=== PATIENT | female | born 1995 | race Two or more races ===

== ENCOUNTER 2018-04-28 19:32 | Emergency (ER) | payer MEDICAID, OTHER ==
[~2018-04-28] VITALS: Ht 157.5 cm; Wt 68.0 kg
[2018-04-28] MEDS ORDERED: SODIUM CHLORIDE 0.9% 1,000 ML IVB ONE (20:06)
[2018-04-28 20:25] LABS: Basophils # (auto) 0 uL; Basophils % (auto) 0.3 % (0.0-2.0); Eosinophils # (auto) 0.1 uL; Eosinophils % (auto) 1.3 % (0.0-7.0); Hemoglobin 13.4 g/dL (12.2-16.2); Lymphocytes # (auto) 2.3 uL; Lymphocytes % (auto) 20.6 % (10.0-50.0); Mean Corpuscular Hemoglobin 30.2 pg (28.0-32.0); Mean Corpuscular Hgb Conc. 33.6 g/dL (32.0-36.0); Mean Corpuscular Volume 90.2 fL (80.0-100.0); Monocytes # (auto) 0.6 uL; Monocytes % (auto) 5.7 % (0.0-12.0); Neutrophils # (auto) 7.9 uL; Neutrophils % (auto) 72.1 % (37.0-80.0); Platelet Count (auto) 204 10^3/uL (140-450); Red Blood Cells 4.44 10^6/uL (4.0-5.20); Red Cell Distribution Width 14.7 % (11.8-14.3); White Blood Cell 10.9 10^3/uL (4.4-10.8)
[2018-04-28 20:39] LABS: Albumin 3.4 g/dL (3.4-5.0); Calcium 9.3 mg/dL (8.5-10.1); INR 0.89 (0.9-1.15); Partial Thromboplastin Time 27.1 sec (23.78-33.04); Potassium 4.5 mmol/L (3.5-5.1); Prothrombin Time 9.6 sec (9.27-12.13)
[2018-04-28 20:41] LABS: BUN/Creatinine Ratio 12.5
[2018-04-28 20:44] LABS: Bilirubin, Total 0.2 mg/dL (0.2-1.0)
[2018-04-28 21:22] LABS: Urine Bacteria FEW /hpf (None Seen); Urine Blood Negative /uL (Negative); Urine Specific Gravity 1.004 (1.001-1.035); Urine WBC <1 /hpf (0 - 5)
[2018-04-28 21:49] VITALS: BP 103/56
== END 2018-04-28 23:38 | disposition home or self-care (01) ==
LOC: ER 19:32
DX: O20.0 Threatened abortion (principal); Z3A.13 13 weeks gestation of pregnancy
CPT/HCPCS: 36415; 76801; 80053; 81001; 81025; 84702; 85025; 85610; 85730; 86850; 86900; 86901

== ENCOUNTER 2025-04-05 12:30 | Emergency (ER) | payer MEDICAID, OTHER ==
[~2025-04-05] VITALS: Ht 160 cm; Wt 76.2 kg
[2025-04-05] MEDS: GLUCAGON EMERG KIT 1mg/1ml IM ONE (12:54)
[2025-04-05] MEDS: LIDOCAINE VISCOUS 2% 15ML UD PO ONE (12:54)
[2025-04-05] MEDS: STERILE WATER 10 ML ONE (12:55)
--- NOTE | 2025-04-05 16:30 | DVH ---
Indication: r/o esoph/tracheal FB Technique: CT axial images of the pick are obtained without contrast. Coronal and sagittal reformats were obtained. Radiation Dose Information: CTDI volume is 13.8 mGy. Dose-length product is 462.51 mGy*cm Comparison: None FINDINGS: Limited evaluation without contrast. Orbits and retrobulbar spaces unremarkable. Parotid, boiler fitter, parapharyngeal spaces unremarkable. Submandibular glands unremarkable. No subme ntal lymphadenopathy. Thyroid gland unremarkable. Nasopharynx, oropharynx, hypopharynx patent. Epiglottis and aryepiglottic folds unremarkable. No radiopaque foreign body identified. IMPRESSION: Limited evaluation without contrast. 1. No radiopaque foreign body identified.
[2025-04-05] MEDS ORDERED: IBUP-1456 PO (16:46)
[2025-04-05] MEDS ORDERED: ACET-1304 PO (16:46)
[2025-04-05] MEDS ORDERED: [UNRECOGNIZED DRUG - CODE] MT (16:46)
[2025-04-05] MEDS: IBUPROFEN 800 MG TAB PO ONE (17:23)
[2025-04-05 17:24] VITALS: BP 114/76; PULSE 82; RESP 16; TEMP 98.1; O2SAT 96
--- NOTE | 2025-04-05 17:40 | ED.PDOC ---
Foreign Body HPI Comments 30y F who presents to the ED for chief complaint of pain. Pt states she was eating a tostada earlier this afternoon. Pt states while eating, she felt something got stuck in her throat and pain with attempted swallowing, resulting in coughing and gagging. Patient became concerned for a piece of food lodged in her throat, so came to the ED for further evaluation. Pt in the ED, denies any shortness of breath or respiratory compromise but states she is having pain with attempted swallowing and states she has the feeling of something being stuck in her throat and came to the ED for further evaluation. Pt in the ED, after receiving p.o. viscous lidocaine and IM glucagon, noted a decrease in pain and denies any associated difficulty breathing. Pt otherwise denies any other symptoms at this time. Chief Complaint: Foreign Body Time Seen by MD: 17:38 Primary Care Provider: MARS History of Present Illness: Medications, Allergies Allergies: Coded Allergies: NO KNOWN ALLERGIES (Unverified , 04/28/18) Home Meds Active Scripts Acetaminophen (Tylenol Extra Strength) 500 Mg Tab, 1000 MG PO Q6HP PRN, #30 TAB prn pain Prov:DONNA GARCIA MD 04/05/25 Ibuprofen (Ibuprofen) 800 Mg Tab, 1 TAB PO Q8HP PRN, #30 TAB 1 Refill prn pain, take with food Prov:DONNA GARCIA MD 04/05/25 Phenol (Antiseptic) (Chloraseptic) 1.4 % Spr, 5 SPRAYS MT Q2HP PRN, #1 BOTTLE prn throat pain Prov:DONNA GARCIA MD 04/05/25 Information Source: Patient Mode of Arrival: Ambulatory Past Medical History PAST MEDICAL HISTORY: Denies Surgical History: Denies all surgeries 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 REFRIGERATOR MECHANIC History Family History Family History: Reviewed,noncontributory to illness Social History Smoker: Non-Smoker Alcohol: Denies ETOH Use Drugs: Denies Drug Use Lives In: Home Constitutional: denies: chills, diaphoresis, fatigue, fever, malaise, sweats, weakness, others EENTM: reports: throat pain; denies: blurred vision, double vision, ear bleeding, ear discharge, ear drainage, ear pain, ear ringing, eye pain, eye redness, hearing loss, mouth pain, mouth swelling, nasal discharge, nose bleeding, nose congestion, nose pain, photophobia, tearing, throat swelling, voice changes, others Respiratory: denies: cough, hemoptysis, orthopnea, SOB at rest, shortness of breath, SOB with excertion, stridor, wheezing, others Cardiovascular: denies: chest pain, dizzy spells, diaphoresis, Dyspnea on exertion, edema, irregular heart beat, left arm pain, lightheadedness, palpitations, PND, syncope, others Gastrointestinal: denies: abdomen distended, abdominal pain, blood streaked bowels, constipated, diarrhea, dysphagia, difficulty swallowing, hematemesis, melena, nausea, poor appetite, poor fluid intake, rectal bleeding, rectal pain, vomiting, others Genitourinary: denies: abnormal vagina bleeding, burning, dyspareunia, dysuria, flank pain, frequency, hematuria, incontinence, pain, , vagina discharge, urgency, others Neurological: denies: dizziness, fainting, headache, left sided numbness, left sided weakness, numbness, paresthesia, pre-existing deficit, right sided numbness, right sided weakness, seizure, speech problems, tingling, tremors, weakness, others Musculoskeletal: denies: back pain, gout, joint pain, joint swelling, muscle pain, muscle stiffness, neck pain, others Integumetry: denies: bruises, change in color, change in hair/nails, dryness, laceration, lesions, lumps, rash, wounds, others Allergic/Immunocompromised: denies: Difficulty Healing, Frequent Infections, Hives, Itching, others Hematologic/Lymphatic: denies: anemia, blood clots, easy bleeding, easy bruising, swollen glands, others Endocrine: denies: excessive hunger, excessive sweating, excessive thirst, excessive urination, flushing, intolerance to cold, intolerance to heat, unexplained weight gain, unexplained weight loss, others Psychiatric: denies: anxiety, bipolar disorder, depression, hopeless, panic disorder, schizophrenia, sleepless, suicidal, others All Other Systems: Reviewed and Negative Physical Exam General Appearance: No Apparent Distress HEENT: Other (Pupils and face symmetric. Moist mucous membranes. No pharyngeal erythema, edema, exudate, lesion, foreign body visualized or uvular deviation) Neck: Full Range of Motion, Normal Inspection Respiratory: Lungs Clear, No Accessory Muscle Use, No Respiratory Distress, Normal Breath Sounds Cardiovascular: No Edema, No JVD, Regular Rate/Rhythm Breast Exam: Deferred Gastrointestinal: Non Tender, Soft Genitalia: Deferred Pelvic: Deferred Rectal: Deferred Extremities: Normal inspection, Normal range of motion, Non-tender, No pedal edema Neurologic: Alert (Oriented x4), Normal Affect, Normal Mood, Other (Ambulatory.) Cerebellar Function: NOT DONE Reflexes: NOT DONE Skin: Dry, Normal Color, Warm Lymphatic: NOT DONE Was a procedure done? Was a procedure done?: No FB Differential Dx Differential Diagnosis: Abrasion, Airway Obstruction, Esophageal Obstruction, Foreign Body, Laceration, Perforation X-Ray, Labs, Meds, VS Vital Signs Date Time Temp Pulse Resp B/P (MAP) Pulse Ox O2 Delivery O2 Flow Rate FiO2 04/05/25 17:24 98.1 82 16 114/76 (89) 96 98.1 04/05/25 13:02 98.9 97 16 102/73 (83) 96 98.9 04/05/25 13:02 97 16 96 Room Air 04/05/25 12:33 98.4 120 20 112/82 (92) 98 98.4 04/05/25 12:33 20 Room Air* 0 21 Lab Test 04/05/25 15:10 Range/Units Urine Test Negative Negative Current Medications Medications (Trade) Dose Ordered Sig/Gisell Route Start Time Stop Time Status Last Admin Lidocaine HCl (Xylocaine 2% Viscous) 10 ml ONCE ONCE PO 04/05/25 12:45 04/05/25 12:46 DC 04/05/25 12:54 Glucagon (Glucagen) 2 mg ONCE ONCE IM 04/05/25 13:00 04/05/25 13:01 DC 04/05/25 12:54 [place] [id number] Ph: [phone] DIAGNOSTIC IMAGING Diagnostic Imaging Report : [id number] Signed PATIENT: MAXIMUS HELTON ACCT: [id number] UNIT: [id number] : 1995 LOC: ER ROOM / BED: / AGE / SEX: 30 / F ADM STATUS: REG ER SERVICE [id number] ORDERING PHYSICIAN: DONNA GARCIA MD PROCEDURE(s): NKICT - NECK WITHOUT CONTRAST REASON: r/o esoph/tracheal FB ORDER NUMBER(s): [id number], ACCESSION NUMBER(s): [id number] Indication: r/o esoph/tracheal FB Technique: CT axial images of the pick are obtained without contrast. Coronal and sagittal reformats were obtained. Radiation Dose Information: CTDI volume is 13.8 mGy. Dose-length product is 462.51 mGy*cm Comparison: None FINDINGS: Limited evaluation without contrast. Orbits and retrobulbar spaces unremarkable. Parotid, pediatric urologist, parapharyngeal spaces unremarkable. Submandibular glands unremarkable. No submental lymphadenopathy. Thyroid gland unremarkable. Nasopharynx, oropharynx, hypopharynx patent. Epiglottis and aryepiglottic folds unremarkable. No radiopaque foreign body identified. IMPRESSION: Limited evaluation without contrast. 1. No radiopaque foreign body identified. ATED BY: MARIBELL HERNANDEZ MD DICTATED DATE/TIME: 04/05/251627 SIGNED BY: MARIBELL HERNANDEZ MD SIGNED DATE/TIME: 04/05/251627 CC: X-Ray, Labs, Meds, VS Comment 30-year-old female with no significant past medical history complaining of throat pain and foreign body sensation after eating a tostada Initial vitals remarkable for heart rate 120 Exam unremarkable Rhythm strip independently interpreted by me: Sinus tach, rate 120, no ectopy. CT neck soft tissue: Unremarkable Patient treated with the following in the ED: Viscous lidocaine 10 mL p.o., glucagon 2 mg IM On re-evaluation, patient states she has mild pain with swallowing, but otherwise states she feels much better. She not in respiratory distress, was able to tolerate p.o. fluids, and vitals were unremarkable. Patient appears stable for discharge with close outpatient follow-up with her primary doctor. Rx Chloraseptic, ibuprofen, Tylenol Time of 1ST Reevaluation: 18:10 Reevaluation 1ST: Unchanged Patient Education/Counseling: Diagnosis, Treatment Family Education/Counseling: No Family Present Departure 1 Departure Time of Disposition: 18:30 Impression: Primary Impression: Abrasion of pharynx Qualified Codes: S10.11XA - Abrasion of throat, initial encounter Disposition: HOME / SELF CARE / HOMELESS Condition: Stable Additional Instructions: Your test was negative. Your CT scan did not show any retained foreign body in your throat. Your symptoms are likely due to an abrasion caused by food you were eating. This should heal by itself. I have prescribed pain medication. Follow-up with your primary doctor in 1-2 days. Return to ER for persistent or worsening symptoms. e-Prescriptions Acetaminophen (Tylenol Extra Strength) 500 Mg Tab 1000 MG PO Q6HP PRN, #30 TAB prn pain Prov: DONNA GARCIA MD 04/05/25 Ibuprofen (Ibuprofen) 800 Mg Tab 1 TAB PO Q8HP PRN, #30 TAB 1 Refill prn pain, take with food Prov: DONNA GARCIA MD 04/05/25 Phenol (Antiseptic) (Chloraseptic) 1.4 % Spr 5 SPRAYS MT Q2HP PRN, #1 BOTTLE prn throat pain Prov: DONNA GARCIA MD 04/05/25 Discharged With: Relative Critical Care Note Critical Care Time?: No Stability Stability form required: No Heart Score Heart Score: Heart Score Response (Comments) Value History N/A 0 EKG N/A 0 Age N/A 0 Risk Factors N/A 0 Troponin N/A 0 Total 0 I personally scribed for DONNA GARCIA MD ([facility] on 04/05/25 at 17:40. Electronically submitted by Mainor Sidhu (JUAN JOSÉ). DONNA GARCIA MD April 05, 2025 17:40
== END 2025-04-05 17:24 | disposition home or self-care (01) ==
LOC: ER 12:38
DX: S10.11XA Abrasion of throat, initial encounter (principal); Z79.899 Other long term (current) drug therapy; X58.XXXA Exposure to other specified factors, initial encounter; Y93.89 Activity, other specified; Y92.89 Other specified places as the place of occurrence of the external cause; Y99.8 Other external cause status
CPT/HCPCS: 70490; 81025; 96372; 99285; J1610